=== PATIENT | male | born 1930 | race Caucasian/White ===

== ENCOUNTER 2016-09-23 10:02 | Day surgery (SDC) | payer MEDICARE, BC ==
[~2016-09-23] VITALS: Ht 180.3 cm; Wt 75.0 kg
[~2016-09-23 10:02] MED LIST: FLOMAX0.4 MG PO; LANOXIN125 MCG PO; PLAVIX75 MG PO; PRADAXA150 MG; PRILOSEC20 MG PO; RESTORIL15 MG PO; SYNTHROID112 MCG PO; ULORIC40 MG PO
[2016-09-23] MEDS ORDERED: FLORINEF 0.1 M0.1 MG PO (11:15)
[2016-09-23] MEDS ORDERED: CARDIZEM60 MG PO (11:15)
[2016-09-23] MEDS ORDERED: MYRBETRIQ50 MG PO (11:16)
[2016-09-23] MEDS ORDERED: TESTOSTERON200 MG/ML IM (11:16)
[2016-09-23] MEDS ORDERED: HYDROCODON-ACE1 EAC7 PO (11:17)
[2016-09-23 11:23] VITALS: BP 186/76; Ht 180.3 cm; Wt 75.0 kg
[2016-09-23 11:48] LABS: BASOPHILS 0.6 % (0.0-2.0); EOSINOPHILS 1.8 % (0-7); HEMATOCRIT 46.3 % (42.0-54.0); HEMOGLOBIN 15.9 g/dL (13.5-17.5); IMMATURE GRANULOCYTES 1.2 % (0-5); LYMPHOCYTES 6.5 % (15-50); MCHC 34.3 g/dL (31.0-37.0); MCV 98.9 fL (80.0-100.0); MEAN PLATELET VOLUME 11.1 fL (7.4-10.4); NEUTROPHILS 78.9 % (40-80); PLATELET COUNT 175 10x3/uL (130-400); RBC 4.68 10x6/uL (4.20-6.10); RDW 14.4 % (11.5-14.5); WBC 6.6 10x3/uL (4.8-10.8)
[2016-09-23 12:04] LABS: CALC OSMOLALITY 289 mosm/kg (275-300); CALCIUM 9.8 mg/dL (8.5-10.1); CARBON DIOXIDE 30.6 mmol/L (21.0-32.0); CHLORIDE - SERUM 107 mmol/L (98-107); CREATININE - SERUM 0.8 mg/dL (0.6-1.3); GLUCOSE 100 mg/dL (74-106); POTASSIUM - SERUM 4.1 mmol/L (3.5-5.1); SODIUM 145 mmol/L (136-145); UREA NITROGEN 14 mg/dL (7-18); eGFR NON AFRICAN AMERICAN > 90 mL/min (90-120)
--- NOTE | 2016-09-23 14:36 | NUR ---
TO RECOVERY AREA IN GI LAB.
--- NOTE | 2016-09-23 15:35 | NUR ---
1515 IV DC WITH CATHER TIP INTACT, ASKING TO GO
--- NOTE | 2016-09-27 13:02 | OP ---
PATIENT NAME: JOSE BURGOS MEDICAL RECORD: [id number] :31 LOCATION:[facility] ADMISSION DATE: SURGEON: SHELBY HENLEY DO DATE OF OPERATION: 09/23/2016 PROCEDURE: EGD with balloon dilation and biopsies. SCOPE: Olympus video gastroscope. MEDICATIONS: Propofol 160 mg IV per anesthesia. 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 FINDINGS: Informed consent was given. The patient was made comfortable with the above medication. After reaching an adequate level of sedation by slow IV push, the patient was placed on his left side. The endoscope was then advanced under direct visualization through the mouth down to the level of the second portion of the duodenum. The upper, middle, and distal thirds of the esophagus appeared normal. At the GE junction, there was evidence of mild Schatzki ring just superior to the Z line. This was dilated from a 16-mm balloon up to an 18 mm balloon successfully. Post-dilation images were satisfactory. Just below this, there was some grade A reflux-induced esophagitis. Biopsies in the past that confirm that there is Hernandez's without dysplasia. Biopsies were taken of the site again to confirm the diagnosis and to rule out any dysplasia. The endoscope was advanced into the stomach and retroflexed to view the cardia, where a small sliding hiatal hernia was present. There were a few polyps, a benign appearance consistent with fundic gland polyps in the fundus and body of the stomach. A single biopsy was taken to send for histology and confirm the diagnosis. Throughout the stomach, there was some granularity and erythema consistent with gastritis. Biopsies were taken to rule out H. pylori and sent for histology. Scope was advanced through the pylorus into the duodenum where the bulb and second portion of the duodenum appeared normal. The scope was then withdrawn from the patient. As the scope was withdrawn near the epiglottis, there appeared to be plaque present on the dorsal surface of epiglottis. No biopsies were taken, but were taken. The scope was then withdrawn from the patient completely and the patient tolerated the procedure well and there were no complications. ESTIMATED BLOOD LOSS: Less than 3 cc. IMPRESSION: 1. Schatzki ring of the distal esophagus, GE junction, dilated up to 18 mm. 2. Reflux esophagitis grade A, biopsy due to history of Hernandez esophagus. 3. Small sliding hiatal hernia. 4. Gastritis with presence of granularity and erythema throughout the entire stomach. 5. Benign appearing fundic gland gastric polyps, biopsied. 6. An epiglottis plaque which was imaged. PLAN AND RECOMMENDATIONS: 1. Discharge home when recovery parameters are met. 2. Continue current medications. 3. Continue current diet. 4. Repeat EGD as necessary for dilation of Schatzki ring. 5. Consider referral to ENT for evaluation of plaque on the epiglottis. OPERATIVE REPORT [id number] JOSE BURGOS 6. Return to GI clinic as needed or as scheduled. TRANSINT:[id number] Voice Confirmation ID: [id number] DOCUMENT ID: [id number] SHELBY HENLEY DO at 1302 CC: [id number] DICTATION DATE: 09/23/161431 JEWELRY BEARING MAKER: 09/23/162052 [facility] 09/23/[address] [facility] [address] [place] [address]
== END 2016-09-23 15:20 | disposition home or self-care (01) ==
LOC: D.OPS 10:02
PROVIDERS: Anesthesiology
DX: R13.10 Dysphagia, unspecified (principal); K21.0 Gastro-esophageal reflux disease with esophagitis; K22.2 Esophageal obstruction; K29.70 Gastritis, unspecified, without bleeding; I48.91 Unspecified atrial fibrillation; I25.10 Atherosclerotic heart disease of native coronary artery without angina pectoris; Z95.5 Presence of coronary angioplasty implant and graft

== ENCOUNTER 2017-03-01 08:04 | Emergency (ER) | payer MEDICARE, BC ==
[2016-09-23 11:23] VITALS: BMI 23.0
[~2017-03-01 08:04] MED LIST changes: +CARDIZEM60 MG PO; +FLORINEF 0.1 M0.1 MG PO; +HYDROCODON-ACE1 EAC7 PO; +MYRBETRIQ50 MG PO; +TESTOSTERON200 MG/ML IM
[2017-03-01 10:20] LABS: ALBUMIN 3.2 g/dL (3.4-5.0); BILIRUBIN - DIRECT 0.19 mg/dL (0.00-0.30); BILIRUBIN - INDIRECT 1.03 mg/dL (0.00-1.00); BILIRUBIN - TOTAL 1.22 mg/dL (0.2-1.3); PROTEIN - SERUM 6.6 g/dL (6.4-8.2)
== END 2017-03-01 10:38 | disposition home or self-care (01) ==
LOC: D.MRI 08:04 → D.ER 08:04 → EDSTATUS 08:30 → D.MRI 08:30 → D.ER 10:38
PROVIDERS: Internal Medicine Gastroenterology
DX: S51.012A Laceration without foreign body of left elbow, initial encounter (principal); X58.XXXA Exposure to other specified factors, initial encounter; Y93.89 Activity, other specified; Y92.89 Other specified places as the place of occurrence of the external cause; K21.9 Gastro-esophageal reflux disease without esophagitis; I10 Essential (primary) hypertension

== ENCOUNTER → 2017-03-04 10:31 | Outpatient (CLI) | payer MEDICARE, BC ==
[2016-09-23 11:23] VITALS: BMI 23.0
[2017-03-04 11:50] LABS: AMYLASE - SERUM 54 U/L (25-115)
[2017-03-04 11:54] LABS: LIPASE 49 U/L (73-393)
== END | disposition home or self-care (01) ==
LOC: D.LAB 10:31
PROVIDERS: Internal Medicine Gastroenterology
DX: R93.8 Abnormal findings on diagnostic imaging of other specified body structures (principal)

== ENCOUNTER 2017-10-17 05:16 | Day surgery (SDC) | payer MEDICARE, BC ==
[~2017-10-17] VITALS: Ht 180.3 cm; Wt 63.6 kg
--- NOTE | ~2017-10-17 | OP ---
PATIENT NAME: JOSE BURGOS MEDICAL RECORD: [id number] :31 LOCATION:[facility] ADMISSION DATE: SURGEON: SHELBY HENLEY DO DATE OF OPERATION: 10/17/2017 PROCEDURE: EGD with balloon dilation less than 30 mm and biopsies. INDICATIONS FOR PROCEDURE: Dysphagia. SCOPE: Olympus video gastroscope. MEDICATIONS: Propofol 120 mg IV per anesthesia. ESTIMATED BLOOD LOSS: Minimal. COMPLICATIONS: None. FINDINGS: Informed consent was given. The patient was made comfortable with the above medication. After reaching an adequate level of sedation by slow IV push, the patient was placed on his left side. The endoscope was advanced under direct visualization through the mouth to the second portion of the duodenum with ease. In the upper and middle esophagus, there was evidence of candidal esophagitis. As the distal esophagus was approached, there was some stenosis noted of the esophagus with passage of the endoscope. The endoscope was not able to be passed beyond the GE junction without dilation. There was evidence of LA class A reflux-induced esophagitis. The endoscope was advanced beyond the GE junction into the stomach and retroflexed to view the cardia and fundus. There was a small sliding hiatal hernia present. Throughout the entire stomach, there was some erythema, granularity, and atrophic-appearing mucosa. Random biopsies were taken with cold forceps to submit for histology and to rule out H. pylori. The endoscope was advanced beyond the pylorus into the duodenum, where the examined portions of the duodenum appeared normal. The endoscope was then withdrawn back into the stomach and an 18-20 mm CRE balloon was placed through the working channel. The endoscope was brought back into the esophagus and the distal esophagus/esophageal stenosis was dilated up to 20 mm successfully. The balloon was removed from the endoscope. The endoscope was brought back up into the mid esophagus and random biopsies were taken with cold forceps to rule out other etiologies for the patient's dysphagia. The endoscope was then withdrawn from the patient. The patient tolerated the procedure well, and there were no complications. IMPRESSION: 1. Candidal esophagitis. 2. LA class A reflux-induced esophagitis. 3. Small sliding hiatal hernia. 4. Esophageal stenosis status post dilation to 20 mm. 5. Gastritis. PLAN AND RECOMMENDATIONS: 1. Discharge home when recovery parameters are met. 2. Follow up biopsy specimen results. 3. Continue current medications including omeprazole 20 mg daily. 4. We will provide a prescription for fluconazole 100 mg daily times 14 days regarding his esophageal Lynne. 5. Repeat EGD as needed for dysphagia. OPERATIVE REPORT [id number] JOSE BURGOS 6. If the dysphagia persists, esophageal manometry and/or barium esophagram may be considered for further workup of the condition as there was no specific stricture visualized today, only some stenosis. TRANSINT:[id number] Voice Confirmation ID: [id number] DOCUMENT ID: [id number] SHELBY HENLEY DO at 0934 CC: [id number] DICTATION DATE: 10/17/17 0759 FAMILY PROTECTION SPECIALIST: 10/17/17 1043 [facility] 10/17/17 [id number] [place] [address]
[2017-10-17] MEDS ORDERED: BAYER CHEWABLE81 MG PO (05:51)
[2017-10-17 05:53] VITALS: BP 149/87; Ht 180.3 cm; Wt 63.6 kg
[2017-10-17 06:08] LABS: BASOPHILS 0.6 % (0-2); EOSINOPHILS 4.1 % (0-7); HEMATOCRIT 50.8 % (42.0-54.0); HEMOGLOBIN 17.7 g/dL (13.5-17.5); IMMATURE GRANULOCYTES 5.2 % (0-5); LYMPHOCYTES 21.8 % (15-50); MCH 33.3 pg (26.0-34.0); MCHC 34.8 g/dL (31.0-37.0); MCV 95.7 fL (80.0-100.0); MEAN PLATELET VOLUME 10.6 fL (7.4-10.4); MONOCYTES 10.2 % (2-11); NEUTROPHILS 58.1 % (40-80); PLATELET COUNT 181 10x3/uL (130-400); RBC 5.31 10x6/uL (4.20-6.10); WBC 6.8 10x3/uL (4.8-10.8)
[2017-10-17 06:31] LABS: ANION GAP 8.7 mmol/L (8-16); CALCIUM 10.4 mg/dL (8.5-10.1); CARBON DIOXIDE 32.9 mmol/L (21.0-32.0); CREATININE - SERUM 1.1 mg/dL (0.6-1.3); POTASSIUM - SERUM 3.6 mmol/L (3.5-5.1)
== END 2017-10-17 09:00 | disposition home or self-care (01) ==
LOC: D.OPS 05:16
PROVIDERS: Anesthesiology
DX: R13.10 Dysphagia, unspecified (principal); K22.2 Esophageal obstruction; K44.9 Diaphragmatic hernia without obstruction or gangrene; K21.0 Gastro-esophageal reflux disease with esophagitis; K29.70 Gastritis, unspecified, without bleeding; B37.81 Candidal esophagitis; I25.10 Atherosclerotic heart disease of native coronary artery without angina pectoris; I48.91 Unspecified atrial fibrillation; E03.9 Hypothyroidism, unspecified; Z01.812 Encounter for preprocedural laboratory examination